=== PATIENT | female | born 1995 | race Caucasian/White ===

== ENCOUNTER 2017-11-15 20:12 | Emergency (ER) | payer OTHER, SELFPAY ==
[2017-11-15 20:13] VITALS: BP 114/64; PULSE 72; RESP 18; TEMP 36.7; O2SAT 97; BMI 21.4
--- NOTE | 2017-11-15 21:02 | RAD_ITS ---
STUDY: X-RAY - RIGHT KNEE REASON FOR EXAM: Female, 21 years old. Pain. TECHNIQUE: 4 view(s) of the knee. COMPARISON: None. FINDINGS: Normal visualized distal femur. Normal visualized proximal tibia and fibula. Normal proximal tibiofibular articulation. Normal medial femorotibial compartment. Normal lateral femorotibial compartment. Normal patellofemoral articulation. The soft tissue structures are unremarkable. RAD/Knee 4 or More Views IMPRESSION: Normal x-ray examination of the knee. Electronically Signed: Letitia Peters MD at 21:33 EDT Tel , Service support ,
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
--- NOTE | 2017-11-15 21:46 | ED.DEP ---
ED Disposition - Plan for ED Patient: Chief Complaint: Lower Extremity Injury Instructions: ED Sprain Knee, ED Meniscal Injury Knee Poss Prescriptions: Hydrocodone Bitart/Apap 5-325 [[place] 5MG-325MG] 1 tab PO Q4H PRN PRN 2 Days #10 tab PRN Reason: Pain Referrals: Shun Rosenthal MD [Primary Care Provider] - Parth Handley MD [STAFF PHYSICIAN] - 5-7 Days
--- NOTE | 2017-11-15 21:49 | DCINST.ED_ITS ---
ED Disposition - Plan for ED Patient: Chief Complaint: Lower Extremity Injury Instructions: ED Sprain Knee, ED Meniscal Injury Knee Poss Prescriptions: Hydrocodone Bitart/Apap 5-325 [[place] 5MG-325MG] 1 tab PO Q4H PRN PRN 2 Days #10 tab PRN Reason: Pain Referrals: Shun Rosenthal MD [Primary Care Provider] - Parth Handley MD [STAFF PHYSICIAN] - 5-7 Days
== END 2017-11-15 22:17 | disposition home or self-care (01) ==
LOC: ED 21:19
PROVIDERS: Emergency Provider Emergency Medicine; Family Provider Pediatrics; PCP Pediatrics
DX: S83.91XA Sprain of unspecified site of right knee, initial encounter (principal); Z79.899 Other long term (current) drug therapy; X50.1XXA Overexertion from prolonged static or awkward postures, initial encounter; Y93.89 Activity, other specified; Y92.214 College as the place of occurrence of the external cause; Y99.8 Other external cause status
CPT/HCPCS: 73564; 99283

== ENCOUNTER → 2018-06-14 | Outpatient (CLI) | payer OTHER, SELFPAY ==
[2018-06-14 10:58] VITALS: BMI 21.4
[2018-06-14 20:58] LABS: Chlamydia Trachomatis by PCR Negative (Negative); Neisserai gonorrhoeae by PCR Negative (Negative); Probe Check PASS; Sample Adequacy Control PASS; Specimen Processing Control PASS
== END | disposition home or self-care (01) ==
PROVIDERS: Family Provider Pediatrics; PCP Pediatrics; Visit Provider Obstetrics & Gynecology
DX: Z11.3 Encounter for screening for infections with a predominantly sexual mode of transmission (principal)
CPT/HCPCS: 87491; 87591

== ENCOUNTER → 2018-06-28 | Outpatient (CLI) | payer OTHER, SELFPAY ==
[2018-06-28 14:08] VITALS: BMI 21.4
--- NOTE | 2018-06-28 14:21 | RAD_ITS ---
STUDY: X-RAY - RIGHT KNEE REASON FOR EXAM: Female, 22 years old. Injury TECHNIQUE: 4 view(s) of the knee. COMPARISON: None. FINDINGS: Normal visualized distal femur. Normal visualized proximal tibia and fibula. Normal proximal tibiofibular articulation. Normal medial femorotibial compartment. Normal lateral femorotibial compartment. Normal patellofemoral articulation. The soft tissue structures are unremarkable. RAD/Knee 4 or More Views IMPRESSION: Normal x-ray examination of the knee. Electronically Signed: Skyler Blank DO at 20:31 EDT Tel [phone], Service support ,
== END | disposition home or self-care (01) ==
LOC: HPRAD 14:20
PROVIDERS: Family Provider Pediatrics; PCP Pediatrics; Referring Provider Orthopaedic Surgery; Visit Provider Orthopaedic Surgery
DX: M25.561 Pain in right knee (principal)
CPT/HCPCS: 73564

== ENCOUNTER → 2018-07-05 | Outpatient (CLI) | payer OTHER, SELFPAY ==
[2018-06-28 14:08] VITALS: BMI 21.4
--- NOTE | 2018-07-05 10:23 | MRI_ITS ---
STUDY: MRI RIGHT KNEE REASON FOR EXAM: Female, 22 years old. Right knee injury. TECHNIQUE: Standardized fat and water weighted pulse sequences were obtained in all 3 orthogonal planes. COMPARISON: June 28, 2018. FINDINGS: Patellofemoral articular cartilage preserved. Medial compartment articular cartilage preserved. Lateral compartment articular cartilage preserved. No acute fracture line. No dislocation. No cortical destruction. Lateral meniscus intact. Medial meniscus intact. Chronic anterior cruciate ligament tear with suspected scarring (sagittal images 21 through 24 series 4 and coronal images 11 through 15 series 7). Posterior cruciate ligament intact. Trace joint effusion. No popliteal cyst. No significant soft tissue swelling. Normal medial collateral ligamentous complex (MCL). Normal distal semimembranosus, gracilis and semitendinosus tendons. Normal proximal tibiofibular articulation. Normal lateral collateral (fibular) ligament. Normal popliteus tendon. Normal biceps femoris tendon. Normal medial and lateral patellar retinaculum. Normal quadriceps tendon. Normal patellar tendon. Normal Hoffa's fat pad. MRI/Lower Ext Joint Only (Routine) IMPRESSION: Chronic ACL tear with suspected scarring (correlate laxity) Trace joint effusion Menisci and collateral ligaments intact Electronically Signed: Bao Perry DO at 13:36 EDT Tel , Service support ,
== END | disposition home or self-care (01) ==
PROVIDERS: Family Provider Pediatrics; PCP Pediatrics; Referring Provider Orthopaedic Surgery; Visit Provider Orthopaedic Surgery
DX: M23.91 Unspecified internal derangement of right knee (principal)
CPT/HCPCS: 73721

== ENCOUNTER 2018-08-18 13:30 | Outpatient (RCR) | payer OTHER, SELFPAY ==
[2018-07-12 10:27] VITALS: BMI 21.4
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
--- NOTE | 2018-10-18 14:55 | HP.PTDCNRP_ITS ---
HP - Discharge Summary (1) - Patient Information JENNI CRAWLEY was seen in my office for initial evaluation on 07/19/18. The following Plan of Care was established for this patient: Initial Frequency: 3x /Week Initial Duration: 4-6 Weeks - Anticipated Interventions Patient/Client Instruction: Educate patient on: Condition, Plan of Care For the Purpose of:: To decrease pain, To increase ROM, To improve performance and independence with ADL's, To improve ability of physical actions for home/community/work/leisure, To improve gait and locomotor functions Therapeutic Exercise to Include: Strength training, Flexibilty training, Gait and locomotor training, Passive ROM, Active ROM For the Purpose of:: To decrease pain, To increase ROM, To improve muscle perf ormance and motor function, To improve ability of physical actions for home/community/work/leisure Manual Therapy Techniques to Include: Soft tissue mobilization For the Purpose of:: To increase ROM TENS: Yes Cryotherapy (ice pack, ice massage): Yes For the Purpose of:: To decrease pain, To decrease swelling/inflammation This patient was last seen in our office 08/18/18. Pertinent comments regarding their Physical therapy will appear below: Pt seen 10 visits of POC and progressed. She did not show up for her last official recheck visit. At this point, it has been over 6 weeks adn I will discontinue due to nonattendance. At this point I will be discontinuing this patient from physical therapy. I would be happy to see this patient again in the future if found appropriate by the physician. Thank you! Bao Stein, DPT, OCS, CSCS
== END 2018-08-18 19:00 | disposition home or self-care (01) ==
LOC: PT 13:30
PROVIDERS: Family Provider Pediatrics; PCP Pediatrics; Visit Provider Orthopaedic Surgery
DX: M22.40 Chondromalacia patellae, unspecified knee (principal)
CPT/HCPCS: 97110; 97140; 97162; 97530

== ENCOUNTER → 2019-04-19 | Outpatient (CLI) | payer OTHER, SELFPAY ==
[2019-04-19 10:13] VITALS: BMI 21.4
[2019-04-19 17:13] LABS: Chlamydia Trachomatis by PCR Negative (Negative); Neisserai gonorrhoeae by PCR Negative (Negative); Probe Check PASS; Sample Adequacy Control PASS; Specimen Processing Control PASS
== END | disposition home or self-care (01) ==
LOC: LABSPEC 13:55
PROVIDERS: PCP Pediatrics; Referring Provider Nurse Practitioner Women's Health; Visit Provider Nurse Practitioner Women's Health
DX: N89.8 Other specified noninflammatory disorders of vagina (principal)
CPT/HCPCS: 87070; 87077; 87205; 87491; 87591

== ENCOUNTER → 2019-04-27 13:20 | Outpatient (CLI) | payer OTHER, SELFPAY ==
[2019-04-19 10:13] VITALS: BMI 21.4
[2019-04-27 10:48] VITALS: BMI 21.4
--- NOTE | 2019-04-27 13:23 | US_ITS ---
STUDY: ULTRASOUND OF THE FEMALE PELVIS - COMPLETE REASON FOR EXAM: Female, 23 years old. Pelvic pain. IUD removal due to infection. TECHNIQUE: Transabdominal and Transvaginal TECHNICAL QUALITY: Adequate. COMPARISON: 04/05/2015. FINDINGS: The uterus is anteverted and is in a midline position. The uterus measures 8.9 x 4.7 x 3.4 cm. Normal uterine cervix. The endometrium measures 5 mm in thickness, and is hyperechoic. There is no demonstrated endometrial mass. There is no demonstrated myometrial mass. There is trace fluid noted in the cervix. The right ovary is visualized. The right ovary measures 4.2 x 3.3 x 2.9 cm. There is a 3.3 x 3.1 x 2.8 cm simple cyst in the right ovary. There is no visualized right adnexal mass or complex lesion. There is normal arterial and normal venous vascularity. The left ovary is visualized. The left ovary measures 2.6 x 1.9 x 1.3 cm. There is no left ovarian cyst or ovarian mass. There is no visualized left adnexal mass or complex lesion. There is normal arterial and normal venous vascularity. There is no fluid in the cul-de-sac. US/Transvaginal Non- IMPRESSION: Trace fluid noted in the cervix. Otherwise, normal sonographic appearance of the uterus. 3 cm simple cyst in the right ovary. Otherwise, normal ovaries with normal Doppler flow bilaterally. Electronically Signed: Kenneth Moralez, at 10:42 EST Tel , Service support ,
--- NOTE | 2019-04-27 13:23 | US_ITS ---
STUDY: ULTRASOUND OF THE FEMALE PELVIS - COMPLETE REASON FOR EXAM: Female, 23 years old. Pelvic pain. IUD removal due to infection. TECHNIQUE: Transabdominal and Transvaginal TECHNICAL QUALITY: Adequate. COMPARISON: 04/05/2015. FINDINGS: The uterus is anteverted and is in a midline position. The uterus measures 8.9 x 4.7 x 3.4 cm. Normal uterine cervix. The endometrium measures 5 mm in thickness, and is hyperechoic. There is no demonstrated endometrial mass. There is no demonstrated myometrial mass. There is trace fluid noted in the cervix. The right ovary is visualized. The right ovary measures 4.2 x 3.3 x 2.9 cm. There is a 3.3 x 3.1 x 2.8 cm simple cyst in the right ovary. There is no visualized right adnexal mass or complex lesion. There is normal arterial and normal venous vascularity. The left ovary is visualized. The left ovary measures 2.6 x 1.9 x 1.3 cm. There is no left ovarian cyst or ovarian mass. There is no visualized left adnexal mass or complex lesion. There is normal arterial and normal venous vascularity. There is no fluid in the cul-de-sac. US/Pelvic (Non ) IMPRESSION: Trace fluid noted in the cervix. Otherwise, normal sonographic appearance of the uterus. 3 cm simple cyst in the right ovary. Otherwise, normal ovaries with normal Doppler flow bilaterally. Electronically Signed: Kenneth Moralez, at 10:42 EST Tel , Service support ,
== END ==
PROVIDERS: Referring Provider Nurse Practitioner Women's Health; Visit Provider Nurse Practitioner Women's Health
DX: R10.2 Pelvic and perineal pain (principal); A42.9 Actinomycosis, unspecified
CPT/HCPCS: 76830; 76856; 87070; 87075; 87077; 87186; 87205; 93976

== ENCOUNTER 2020-10-14 15:19 | Emergency (ER) | payer OTHER, SELFPAY ==
[2019-04-27 10:48] VITALS: BMI 21.4
[2020-10-14] VITALS (8 sets, daily range): BP systolic 97–142; BP diastolic 60–97; PULSE 73–117; RESP 14–30; TEMP 36.6; O2SAT 93–99; BMI 21.4
[2020-10-14] MEDS: LORazepam 2 MG/ML Syringe IV (15:23)
[2020-10-14] MEDS: LORazepam 2 MG/ML Syringe 1 MG IV (15:35)
[2020-10-14] MEDS: Ziprasidone IM 20 MG/ML VIAL IM (15:40)
--- NOTE | 2020-10-14 16:11 | EX.ED.DYSGE1 ---
HPI History of Present Illness Chief Complaint: Seizure Informant: parent and EMS Narrative Narrative: 24-year-old female with a history of bipolar disorder and PNES. Reportedly father called EMS for seizure activity. EMS was with her for about 12 minutes total. They states they gave her 5 mg of intranasal Versed. The activity improved and she seemed to be postictal and then activity resumed. They note that it seems to be at generalized tonic-clonic seizure. Mother arrives in the room and tells me that she has been seeing [facility] for PNES. She is on Lamictal. They state they have not been able to capture any epileptic waveforms on EEG. She has had brain imaging. [facility] Medical History Anxiety Depression Pott disease Home Medications cetirizine 10 mg PO DAILY 04/05/15 [History Last Taken Unknown] lorazepam 1 mg PO QHS 04/05/15 [History Last Taken Unknown] citalopram 60 mg PO DAILY 11/15/17 [History Last Taken Unknown] dextroamphetamine-amphetamine [Mydayis] 37.5 mg PO DAILY 10/14/20 [History Last Taken Unknown] lamotrigine 200 mg PO DAILY 10/14/20 [History Last Taken Unknown] pantoprazole 20 mg PO DAILY 10/14/20 [History Last Taken Unknown] spironolactone 100 mg PO DAILY 10/14/20 [History Last Taken Unknown] trazodone 75 mg PO QHS 10/14/20 [History Last Taken Unknown] Allergy/AdvReac Type Severity Reaction Status Date / Time No Known Allergies Allergy Verified 10/14/20 15:26 Family History Unknown Diabetes Surgical History History of tonsillectomy Social History Smoking Status: Never smoker alcohol intake: current details: social substance use type: does not use caffeine: Yes what type of physical activity do you participate in: walking seatbelt use: always do you feel safe at home: Yes additional social history: Student at [employer] for [employer] ROS ROS ED Constitutional Constitutional ED: Denies chills or weight loss Eyes Eyes: Denies change in vision or diplopia ENT ENT ED: Denies ear pain, rhinorrhea or sore throat Cardiovascular Cardiovascular: Denies chest pain, orthopnea, palpitations or racing heartbeat Respiratory/Chest Respiratory/Chest: Denies cough, dyspnea or orthopnea Gastrointestinal Gastrointestinal: Denies abdominal pain, diarrhea, nausea or vomiting Genitourinary Genitourinary ED: Denies dysuria, hematuria or urinary frequency Musculoskeletal Musculoskeletal: Denies arthralgias or myalgias Integumentary Denies abscess or rash Neurologic Neurologic: Reports other Details: See history of present illness ; Denies headache(s) or weakness Psychiatric Psychiatric: Denies anxiety, depression, suicidal ideation or suicidal thoughts Endocrine Endocrinology: Denies polydipsia, polyphagia or polyuria Allergic/Immunologic Allergic/Immunologic ED: Denies mouth swelling, tongue swelling or urticaria EXAM Physical Exam Narrative Exam Narrative: Patient appears to have contractures of her arms and her legs. Her eyes are closed and she is shaking her head. At 1 point she appears to be biting her tongue but not causing injury. During the seizure she maintains corneal reflex and can withdrawal to pain. Const Vital Signs: 10/14/20 15:20 10/14/20 15:27 10/14/20 15:50 Temperature 98 F Temperature Source Temporal Pulse Rate 113 H 108 H 117 H Respiratory Rate 24 H 30 H 15 Blood Pressure 142/97 H 142/97 H 118/82 H Blood Pressure Mean 112 112 94 Pulse Ox 97 93 99 Oxygen Delivery Method Non-Rebreather Non-Rebreather Room Air Oxygen Flow Rate (L/min) 10/14/20 16:19 10/14/20 17:19 10/14/20 18:00 Temperature Temperature Source Pulse Rate 81 81 78 Respiratory Rate 16 16 14 Blood Pressure 97/64 99/61 98/63 Blood Pressure Mean 75 73 74 Pulse Ox 98 99 99 Oxygen Delivery Method Non-Rebreather Non-Rebreather Non-Rebreather Oxygen Flow Rate (L/min) 15 15 10/14/20 19:21 Temperature Temperature Source Pulse Rate 73 Respiratory Rate 16 Blood Pressure 99/67 Blood Pressure Mean 77 Pulse Ox 99 Oxygen Delivery Method Room Air Oxygen Flow Rate (L/min) Positive well nourished and well developed General Appearance ED: well developed HEENT Reports normocephalic, head/scalp atraumatic and moist mucous membranes Eyes PERRL and EOMs intact bilaterally Neck no lymphadenopathy, supple and no JVD Resp normal respiratory effort and clear to auscultation bilaterally Cardio regular rate, regular rhythm and no murmurs GI normal to inspection, nondistended, normoactive bowel sounds and non-tender Palpation: soft Back/Spine no CVA tenderness and normal ROM Extremity normal to inspection General Extremety ED: Negative for edema General Extremity: Negative for edema Neuro oriented x3 and CN's II-XII intact bilaterally Sensorium / Orientation: alert Motor Exam: strength 5/5 throughout Psych mental status grossly normal Mood & Affect: Negative for depressed or tearful Skin no rashes or lesions noted and no wounds MDM MDM MDM Narrative Medical decision making narrative: The patient received a total of 3 mg of Ativan. Patient started to scream that she needed to leave and wanted to run away. She was afraid that we are going to hurt her. When the Ativan did not stop her activity patient received Geodon and the patient started to rest comfortably. Patient was observed for several more hours. Patient does not remember the events. She has gotten up at time and spoken coherently with her mom. Mom is comfortable taking her home. She mom will be calling her doctors tomorrow. They do have an upcoming telehealth appointment. Discharge Plan Triage Chief Complaint: Seizure ED Provider: Soto Rivera Dx/Rx/DC Orders Clinical Impression: Psychogenic nonepileptic seizure Instructions: First Aid: Seizures Prescriptions: No Action cetirizine 10 MG tablet 10 mg PO DAILY RF: 0 lorazepam 0.5 MG tablet 1 mg PO QHS RF: 0 citalopram 20 MG tablet 60 mg PO DAILY RF: 0 lamotrigine 200 mg tablet extended release 24hr 200 mg PO DAILY RF: 0 trazodone 50 mg tablet 75 mg PO QHS RF: 0 spironolactone 100 mg tablet 100 mg PO DAILY RF: 0 pantoprazole 20 mg tablet,delayed release (DR/EC) 20 mg PO DAILY RF: 0 Mydayis 37.5 mg capsule, ER triphasic 24 hr 37.5 mg PO DAILY RF: 0 Primary Care Provider: Tiffany Santos Referrals: Tiffany Santos MD [Primary Care Provider] - As Needed Disposition Disposition: Home, Self Care
--- NOTE | 2020-10-14 16:30 | ED.RN ---
PT HAS EPISODES OF BECOMING RIGID WITH TREMORS, CONTINUES TO WITHDRAW FROM PAINFUL STIMULI. AFTER ONE EPISODE PT SAT UPRIGHT IN BED, STARTED YELLING HELP ME. PT DIFFICULT TO REDIRECT, ATTEMPTING TO GET OUT OF BED. MEDICATED PER MD ORDERS, PT RESTING QUIETLY IN BED AFTERWARDS. MOTHER STATES PT HAS BEEN DIAGNOSED WITH PSYCHOGENIC NON-EPILEPTIC SEIZURES.
== END 2020-10-14 19:58 | disposition home or self-care (01) ==
PROVIDERS: Emergency Provider Emergency Medicine; PCP Internal Medicine
DX: F44.5 Conversion disorder with seizures or convulsions (principal); F41.9 Anxiety disorder, unspecified; F32.9 Major depressive disorder, single episode, unspecified; Z79.899 Other long term (current) drug therapy
CPT/HCPCS: 96372; 96374; 99285; A4216; J3486

== ENCOUNTER 2021-03-21 10:30 | Emergency (ER) | payer MEDICAID, SELFPAY ==
[2021-03-21 10:32] VITALS: BP 117/73; PULSE 98; RESP 16; TEMP 36.2; O2SAT 95; BMI 23.4
--- NOTE | 2021-03-21 10:36 | EX.ED.DYSGE1 ---
HPI History of Present Illness Chief Complaint: Seizure Detail of Chief Complaint: Seizure Informant: patient Narrative Narrative: Patient presents to the emergency department with complaint of seizure. Patient was at physician's office having blood work when she started having whole body tonic-clonic like seizure activity. EMS was called. EMS gave a total of 7 mg of Versed. Initially after Versed she stopped seizing for about 5 minutes but seemed postictal. On arrival to the emergency department patient started to seize again. Patient was ordered Keppra on arrival 1 g IV. Prior similar symptoms: Yes [facility] Medical History (Updated 03/21/21 @ 14:[address] Toshia Wild DO) Anxiety Depression Pott disease Pseudoseizures Home Medications cetirizine 10 mg PO DAILY 04/05/15 [History Last Taken Unknown] lorazepam 1 mg PO QHS 04/05/15 [History Last Taken Unknown] citalopram 40 mg PO DAILY 11/15/17 [History Last Taken Unknown] dextroamphetamine-amphetamine [Mydayis] 37.5 mg PO DAILY 10/14/20 [History Last Taken Unknown] lamotrigine 200 mg PO DAILY 10/14/20 [History Last Taken Unknown] pantoprazole 20 mg PO DAILY 10/14/20 [History Last Taken Unknown] spironolactone 50 mg PO DAILY 10/14/20 [History Last Taken Unknown] trazodone 75 mg PO QHS 10/14/20 [History Last Taken Unknown] ondansetron 4 mg PO PRN PRN 03/21/21 [History Last Taken Unknown] Allergy/AdvReac Type Severity Reaction Status Date / Time No Known Allergies Allergy Verified 03/21/21 10:38 Family History Unknown Diabetes Surgical History History of tonsillectomy Social History Smoking Status: Never smoker alcohol intake: current details: social substance use type: does not use caffeine: Yes what type of physical activity do you participate in: walking seatbelt use: always do you feel safe at home: Yes additional 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 history: 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 ROS ED Review of Systems ROS Unobtainable: due to encephalopathy, due to endotracheal tube, due to mental condition, due to mental status and other Constitutional Constitutional ED: Reports systems reviewed and no addt'l complaints, except as documented; Denies body ache(s), change in weight or chills Eyes Eyes: Denies acute decrease in peripheral vision, change in vision, double vision or loss of vision ENT ENT ED: Reports none; Denies ear pain, lip swelling, loss taste/smell, neck pain, otalgia or sore throat Cardiovascular Cardiovascular: Reports none; Denies abdominal pain, chest pain with activity, leg edema, lightheadedness, palpitations, rapid heart rate or syncope Respiratory/Chest Respiratory/Chest: Reports none; Denies change in mental status, dry cough, dyspnea, hemoptysis, shortness of breath at rest or shortness of breath with exertion Gastrointestinal Gastrointestinal: Reports none; Denies abdominal pain, change in stool character, diarrhea, hematemesis, hematochezia, melena, rectal bleeding or vomiting Genitourinary Genitourinary ED: Reports none; Denies abdominal discomfort, anuria, dysuria, genital pain or polyuria Musculoskeletal Musculoskeletal: Reports none; Denies arthralgias, back pain, difficulty walking, extremity pain, muscle weakness or myalgias Integumentary Reports none; Denies abscess or rash Neurologic Neurologic: Reports none; Denies abnormal gait, confusion, focal weakness, frequent falls, headache(s), loss of vision, numbness, paresthesias, radicular pain, vertigo or weakness Psychiatric Psychiatric: Reports systems reviewed and no addt'l complaints, except as documented and none; Denies behavioral changes, confusion, difficulty concentrating, hallucinations, suicidal ideation, tactile hallucinations or visual hallucinations Endocrine Endocrinology: Denies none, cold intolerance, excessive sweating, fatigue or heat intolerance Hematologic/Lymphatic Hematologic/Lymphatic: Reports none; Denies anemia, easy bleeding or easy bruising Allergic/Immunologic Allergic/Immunologic ED: Denies as per HPI, none, lip swelling, mouth swelling, throat swelling, tongue swelling or hives EXAM Physical Exam Narrative Exam Narrative: No seizure activity seen as I enter the room. Patient not following commands at this time but maintaining her airway. When I attempt to open her eyes she is looking in different directions but there is no twitching of her eyes noted. Const Vital Signs: 01/20/22 10:32 03/21/21 11:06 03/21/21 12:28 Temperature 97.1 F L Temperature Source Temporal Pulse Rate 98 92 84 Respiratory Rate 16 16 15 Blood Pressure 117/73 100/67 97/62 Blood Pressure Mean 87 78 73 Pulse Ox 95 94 97 Oxygen Delivery Method Room Air Room Air Room Air 03/21/21 14:30 Temperature Temperature Source Pulse Rate 78 Respiratory Rate 14 Blood Pressure 94/53 L Blood Pressure Mean 66 Pulse Ox 98 Oxygen Delivery Method Room Air Positive well nourished and well developed General Appearance ED: well developed and NAD HEENT Reports TM's clear and moist mucous membranes normocephalic and atraumatic; Negative for trauma or tenderness Tympanic Membrane ED: Yes TM's clear Eyes PERRL and EOMs intact bilaterally General Eye ED: Negative for pale conjunctiva or scleral icterus Neck no lymphadenopathy, supple and no JVD General: Negative for tenderness Chest Wall inspection of chest normal and palpation of chest normal Chest: Negative for tenderness Resp normal respiratory effort and clear to auscultation bilaterally Effort and Inspection: Negative for respiratory distress or pain with movement Auscultation: Negative for rhonchi, wheezes or diminished lung sounds Cardio regular rate, regular rhythm, S1 normal heart sound, S2 normal heart sound and no murmurs Peripheral Pulses: pulses 2+ throughout GI normal to inspection, nondistended, normoactive bowel sounds, soft to palpation, non-tender, non-distended and no masses Back/Spine no CVA tenderness and no thoracic nor lumbar tenderness Extremity normal to inspection General Extremety ED: Negative for edema General Extremity: Negative for edema Neuro oriented x3, CN's II-XII intact bilaterally, no sensory deficits noted and gait normal Sensorium / Orientation: awake, alert, oriented to person, oriented to place and oriented to time Motor Exam: strength 5/5 throughout and strength abnormal Psych mental status grossly normal Skin no rashes or lesions noted and no wounds MDM MDM MDM Narrative Medical decision making narrative: Patient presented to the emergency department with an IV in place. Initially I had ordered Keppra as EMS stated that patient was seizing again however once I entered the room she had stopped seizing. Mother then soon arrived and stated that patient is been under the care of neurologist at [facility] and she has nonepileptic seizures and typically the medicine that helps her the most is Geodon. Patient did receive 10 mg of Geodon IM. Patient had unremarkable lab work. She was observed in the department for several hours and she became alert and active and was able to ambulate in the department. At this point she and her mother feel like she is ready to go home. Patient advised to follow-up with her neurologist. Lab Data Attestation: I reviewed the patient's lab results. Labs: Laboratory Results - last 24 hr 03/21/21 03/21/21 03/21/21 10:35 10:35 10:43 WBC 8.9 RBC 4.59 Hgb 13.5 Hct 40.6 MCV 88.5 MCH 29.4 MCHC 33.3 RDW Std Deviation 37.4 RDW Coeff of Ervin 11.7 Plt Count 340 MPV 8.8 Immature Gran % (Auto) 0.200 Neut % (Auto) 55.3 Lymph % (Auto) 33.1 Gates % (Auto) 6.3 Eos % (Auto) 3.9 Baso % (Auto) 1.2 H Absolute Neuts (auto) 4.9 Absolute Lymphs (auto) 2.95 Nucleated RBC % 0 Sodium 137 Potassium 3.8 Chloride 104 Carbon Dioxide 23.0 Anion Gap 10 BUN 14 Creatinine 1.08 H Estim Creat Clear Calc 81.72 Est GFR (MDRD) Af Amer 81 Est GFR (MDRD) Non-Af 67 BUN/Creatinine Ratio 13.0 Glucose 95 Calcium 9.1 Total Bilirubin 0.60 AST 18 ALT 24 Alkaline Phosphatase 71 Total Protein 8.2 Albumin 3.8 Globulin 4.4 H Albumin/Globulin Ratio 0.9 Serum , Qual Urine Opiates Screen Urine Methadone Screen Ur Barbiturates Screen Ur Phencyclidine Scrn Ur Amphetamines Screen U Methamphetamin-MDMA U Benzodiazepines Scrn Urine Cocaine Screen U Cannabinoids Screen Ur Drug Screen Comment Ethyl Alcohol 4.0 03/21/21 03/21/21 10:43 12:30 WBC RBC Hgb Hct MCV MCH MCHC RDW Std Deviation RDW Coeff of Ervin Plt Count MPV Immature Gran % (Auto) Neut % (Auto) Lymph % (Auto) Gates % (Auto) Eos % (Auto) Baso % (Auto) Absolute Neuts (auto) Absolute Lymphs (auto) Nucleated RBC % Sodium Potassium Chloride Carbon Dioxide Anion Gap BUN Creatinine Estim Creat Clear Calc Est GFR (MDRD) Af Amer Est GFR (MDRD) Non-Af BUN/Creatinine Ratio Glucose Calcium Total Bilirubin AST ALT Alkaline Phosphatase Total Protein Albumin Globulin Albumin/Globulin Ratio Serum , Qual NEGATIVE Urine Opiates Screen NEGATIVE Urine Methadone Screen NEGATIVE Ur Barbiturates Screen NEGATIVE Ur Phencyclidine Scrn NEGATIVE Ur Amphetamines Screen POSITIVE H U Methamphetamin-MDMA NEGATIVE U Benzodiazepines Scrn POSITIVE H Urine Cocaine Screen NEGATIVE U Cannabinoids Screen NEGATIVE Ur Drug Screen Comment Ethyl Alcohol Discharge Plan Triage Chief Complaint: Seizure ED Provider: Toshia Wild Dx/Rx/DC Orders Clinical Impression: Psychogenic nonepileptic seizure Instructions: ED Conversion Disdr Conversion Reac Prescriptions: No Action cetirizine 10 MG tablet 10 mg PO DAILY RF: 0 lorazepam 0.5 MG tablet 1 mg PO QHS RF: 0 citalopram 20 MG tablet 40 mg PO DAILY RF: 0 lamotrigine 200 mg tablet extended release 24hr 200 mg PO DAILY RF: 0 trazodone 50 mg tablet 75 mg PO QHS RF: 0 spironolactone 100 mg tablet 50 mg PO DAILY RF: 0 pantoprazole 20 mg tablet,delayed release (DR/EC) 20 mg PO DAILY RF: 0 Mydayis 37.5 mg capsule, ER triphasic 24 hr 37.5 mg PO DAILY RF: 0 ondansetron 4 mg tablet,disintegrating 4 mg PO PRN PRN (Reason: Nausea) RF: 0 Primary Care Provider: Tiffany Santos Referrals: Tiffany Santos MD [Primary Care Provider] - Activity Restrictions/Additional Instructions: Follow-up with your neurologist in 3 to 5 days. Disposition Disposition: Home, Self Care
[2021-03-21 10:44] LABS: Absolute Lymphocyte Count 2.95 X10^3/uL (0.83-4.51); Absolute Neutrophil Count 4.9 X10^3/uL (2.0-7.7); Basophil# 0.11 X10^3/uL; Basophil% 1.2 % (0-1); Eosinophil# 0.35 X10^3/uL; Eosinophils% 3.9 % (0-5); Hematocrit 40.6 % (37-47); Hemoglobin 13.5 g/dL (12.0-15.0); Lymphocyte # 2.95 X10^3/ul (0.83-4.51); Lymphocyte % 33.1 % (19-41); Mean Corp Hgb Conc 33.3 g/dL (32-36); Mean Corpuscular Hgb 29.4 pg (27.0-32.0); Mean Corpuscular Volume 88.5 fL (81-99); Mean Platelet Vol. 8.8 fl (6.2-12.0); Monocyte# 0.56 X10^3/uL; Monocyte% 6.3 % (0-10); NRBC Flagged by Analyzer 0 % (0-5); Neutrophil # 4.91 X10^3/uL (2.7-7.7); Neutrophil % 55.3 % (47-70); Platelet Count 340 K/mm3 (150-450); RBC Distribution Width CV 11.7 % (11.6-14.6); RBC Distribution Width SD 37.4 fl (35.1-43.9); Red Blood Count 4.59 M/mm3 (4.2-5.4); White Blood Count 8.9 K/mm3 (4.4-11.0)
[2021-03-21] MEDS: Ziprasidone IM 20 MG/ML VIAL 10 MG IM (10:50)
[2021-03-21] MEDS: 0.9% Normal Saline 1,000 ML 150 ML IV (10:50)
[2021-03-21 10:59] LABS: ALB/GLOB Ratio 0.9 RATIO (0.9-2.4); AST(SGOT) 18 U/L (15-37); Alanine Aminotransfer ALT/SGPT 24 U/L (13-56); Albumin, Serum 3.8 g/dL (3.2-5.0); Alkaline Phosphatase 71 U/L (45-117); Anion Gap 10 (5-15); BUN 14 mg/dL (7-18); Calcium,Total 9.1 mg/dL (8.5-10.1); Chloride 104 mmol/L (98-107); Creatinine, Serum 1.08 mg/dL (0.55-1.02); EST Glomerular Filtration Rate 67 mL/min (>60); Est Glom Filt Rate - Afr Amer 81 mL/min (>60); Estimated Creatinine Clearance 81.72 ml/min; Globulin 4.4 g/dL (2.2-4.2); Glucose 95 mg/dL (74-106); Potassium 3.8 mmol/L (3.5-5.1); Protein, Total 8.2 g/dL (6.4-8.2); Sodium Level 137 mmol/L (136-145)
[2021-03-21 11:06] VITALS: BP 100/67; PULSE 92; RESP 16; O2SAT 94
[2021-03-21 11:13] LABS: Internal QC Validated? YES +Cl - CLEAR BKGD; Pregnancy, Serum, hCG Quali. NEGATIVE Negative
[2021-03-21 12:28] VITALS: BP 97/62; PULSE 84; RESP 15; O2SAT 97
[2021-03-21 13:06] LABS: Amphetamine Urine VISTA POSITIVE (<1000 ng/mL); Barbiturate Urine VISTA NEGATIVE (< 200 ng/mL); Benzodiazepine Urine VISTA POSITIVE (< 200 ng/mL); Cocaine Urine VISTA NEGATIVE (< 300 ng/mL); Ecstacy Urine VISTA NEGATIVE (< 500 ng/mL); Methadone Urine VISTA NEGATIVE (< 300 ng/mL); PCP Urine VISTA NEGATIVE (< 25 ng/mL); THC Urine VISTA NEGATIVE (< 50 ng/mL); Vista UDS pH Range 6
[2021-03-21 14:30] VITALS: BP 94/53; PULSE 78; RESP 14; O2SAT 98
[2021-03-27 10:34] LABS: KEPPRA (LEVETIRACETAM) <1.0 ug/mL (10.0-40.0)
== END 2021-03-21 14:53 | disposition home or self-care (01) ==
PROVIDERS: Emergency Provider Emergency Medicine; PCP Internal Medicine; Visit Provider Emergency Medicine
DX: G40.409 Other generalized epilepsy and epileptic syndromes, not intractable, without status epilepticus (principal); F41.9 Anxiety disorder, unspecified; F32.A Depression, unspecified; Z79.899 Other long term (current) drug therapy
CPT/HCPCS: 51701; 80053; 80177; 80307; 82077; 84703; 85025; 96360; 96361; 96372; 99285; J7030; P9612; A4216; J3486

== ENCOUNTER 2021-09-07 14:52 | Emergency (ER) | payer MEDICAID, SELFPAY ==
[2021-09-07 14:54] VITALS: BP 106/78; PULSE 79; RESP 16; TEMP 36.1; O2SAT 97; BMI 23.7
--- NOTE | 2021-09-07 15:13 | EX.ED.DYSGE1 ---
HPI <STEWART Walters - Last Filed: 09/07/21 16:02> History of Present Illness Chief Complaint: Seizure Narrative Narrative: 24-year-old female with past medical history of anxiety, depression, PNES presents after mother called EMS for seizure activity. This morning she was not feeling well and then about an hour before arrival she had 3 seizures in the living room. Mom states she did not hit anything and was on the living room floor. Her hands and feet become stiff and shake and her eyes rolled back in her head. No bladder or bowel incontinence. EMS administered 5 of Versed and she has had no further seizure activity. She arrives sleepy but is able to speak. Mom states she had extensive work-up at [facility] and was determined to have psychogenic nonepileptic seizures. They had admitted her for week-long video EEG and did brain imaging which was negative. PENDING SALE TO [facility] <STEWART Walters - Last Filed: 09/07/21 16:02> PENDING SALE TO [facility] Medical History (Updated 09/07/21 @ 15:18 by STEWART Walters) Anxiety Depression Pott disease Pseudoseizures Home Medications cetirizine 10 mg tablet 10 mg PO DAILY 04/05/15 [History Last Taken Unknown] lorazepam 0.5 mg tablet 1 mg PO QHS 04/05/15 [History Last Taken Unknown] dextroamphetamine-amphetamine ER 37.5 mg capsule, 3 bead, ext rel 24hr (Mydayis) 37.5 mg PO DAILY 10/14/20 [History Last Taken Unknown] lamotrigine 200 mg tablet,extended release 24 hr 200 mg PO DAILY 10/14/20 [History Last Taken Unknown] pantoprazole 20 mg tablet,delayed release 20 mg PO DAILY 10/14/20 [History Last Taken Unknown] spironolactone 100 mg tablet 50 mg PO DAILY 10/14/20 [History Last Taken Unknown] trazodone 50 mg tablet 100 mg PO QHS 10/14/20 [History Last Taken Unknown] ondansetron 4 mg disintegrating tablet 4 mg PO PRN PRN Nausea 03/21/21 [History Last Taken Unknown] Allergy/AdvReac Type Severity Reaction Status Date / Time No Known Allergies Allergy Verified 03/21/21 10:38 Family History Unknown Diabetes Surgical History History of tonsillectomy Social History Smoking Status: Never smoker alcohol intake: current details: social substance use type: does not use caffeine: Yes what type of physical activity do you participate in: walking seatbelt use: always do you feel safe at home: Yes 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 Eyes: Negative for visual change. ENT: Negative for sore throat, ear pain, rhinorrhea. CVS: Negative for palpitations, chest pain, syncope. Respiratory: Negative for shortness of breath, cough, orthopnea. GI: Negative for abdominal pain, nausea, vomiting, diarrhea, constipation, melena, hematochezia. : Negative for dysuria, hematuria or frequency. Neuro: Negative for headache, motor/sensory dysfunction. Skin: Negative for rash, abscess, or wound. Musc: Negative for joint pain, swelling, trauma. Heme: Negative for easy bruising, bleeding, lymphadenopathy. EXAM <STEWART Walters - Last Filed: 09/07/21 16:02> Physical Exam Narrative Exam Narrative: CONST: Patient resting in bed with eyes closed, no distress. EYES: Normal inspection. PERRLA, EOMI. ENT: Normal inspection, moist mucous membranes. NECK: Normal inspection. RESP: No respiratory distress, CTAB. CVS: Regular rate and rhythm, no murmur, no gallop. ABD: Soft and nontender, no guarding or rebound, nondistended. SKIN: Color normal, no rash, warm, dry, intact. EXTREMITIES: Normal appearance, no pedal edema. NEURO: Oriented, patient is sleepy from Versed but will say yes or no to historical questions appropriately, squeezes hands bilaterally, wiggles toes on command. No clonus and downgoing Babinski. PSYCH: Normal affect. Const Vital Signs: 09/07/21 14:54 Temperature 96.9 F L Temperature Source Temporal Pulse Rate 79 Respiratory Rate 16 Blood Pressure 106/78 Blood Pressure Mean 87 Pulse Ox 97 Oxygen Delivery Method Room Air <Dr. Eliud Mora MD - Last Filed: 09/07/21 15:42> Physical Exam Const Vital Signs: 09/07/21 14:54 Temperature 96.9 F L Temperature Source Temporal Pulse Rate 79 Respiratory Rate 16 Blood Pressure 106/78 Blood Pressure Mean 87 Pulse Ox 97 Oxygen Delivery Method Room Air MDM <STEWART Walters - Last Filed: 09/07/21 16:02> [facility] Narrative Medical decision making narrative: Patient had a seizure this morning. She has a known history of psychogenic nonepileptic seizures diagnosed by EEG/brain imaging. She is not on any antiepileptic medications. She was given Versed by EMS and is now sleepy but back to baseline. She is answering my questions appropriately. She is corneal reflex present. She will squeeze my hands and wiggle her toes. She has a nonfocal neurological exam. With no diagnosis of PNES there is no indication for further intervention or emergent work-up. After few minutes in the ED patient is sitting in bed with eyes open awake and alert chatting with mom. She is able to ambulate. She will be discharged home. Diagnosis 1. Psychogenic nonepileptic seizures I have personally performed a face to face assessment of the patient and have reviewed the COBY Note. I performed a substantive portion of the visit including all aspects of the following. My long findings include: History is [25-year-old female with a history of pseudoseizures. Today was having seizures. Squad was called. They gave her 5 mg IM of Versed. He has had extensive work-up in the past. Including prolonged EEGs and brain imaging all of which has been negative. She has been in her normal state of health. The episode stopped after the of the Versed. Currently she is asleep. Mom is present in the room and is providing the history.] Exam is [25-year-old female no acute distress. Vital signs stable afebrile. Pulse ox 97% on room air no signs hypoxia. Patient is resting comfortably. Eyes are closed. When I open her eyes manually they do respond to light. No signs of trauma to her head or face. Neck nontender. Lungs are clear. Heart regular rhythm rate about 80 no murmur. Abdomen soft nontender. Extremities currently are flaccid. Neurologically she does not respond to commands currently she has stable vital signs and pulse ox.] Medical Decision Making [reviewed the patient's prior work-ups. Again she has had negative EEGs and negative imaging. We will watch her in the emergency department and as long as she is doing well she will eventually be discharged home.] Other additions or changes: [None] <Dr. Eliud Mora MD - Last Filed: 09/07/21 15:42> [facility] Narrative Medical decision making narrative: Patient had a seizure this morning. She has a known history of psychogenic nonepileptic seizures diagnosed by EEG/brain imaging. She is not on any antiepileptic medications. She was given Versed by EMS and is now sleepy but back to baseline. She is answering my questions appropriately. She is corneal reflex present. She will squeeze my hands and wiggle her toes. She has a nonfocal neurological exam. With no diagnosis of PNES there is no indication for further intervention or emergent work-up. Diagnosis 1. Psychogenic nonepileptic seizures I have personally performed a face to face assessment of the patient and have reviewed the COBY Note. I performed a substantive portion of the visit including all aspects of the following. My long findings include: History is [25-year-old female with a history of pseudoseizures. Today was having seizures. Squad was called. They gave her 5 mg IM of Versed. He has had extensive work-up in the past. Including prolonged EEGs and brain imaging all of which has been negative. She has been in her normal state of health. The episode stopped after the of the Versed. Currently she is asleep. Mom is present in the room and is providing the history.] Exam is [25-year-old female no acute distress. Vital signs stable afebrile. Pulse ox 97% on room air no signs hypoxia. Patient is resting comfortably. Eyes are closed. When I open her eyes manually they do respond to light. No signs of trauma to her head or face. Neck nontender. Lungs are clear. Heart regular rhythm rate about 80 no murmur. Abdomen soft nontender. Extremities currently are flaccid. Neurologically she does not respond to commands currently she has stable vital signs and pulse ox.] Medical Decision Making [reviewed the patient's prior work-ups. Again she has had negative EEGs and negative imaging. We will watch her in the emergency department and as long as she is doing well she will eventually be discharged home.] Other additions or changes: [None] Discharge Plan Triage Chief Complaint: Seizure ED Midlevel Provider: Shonda Hilario ED Provider: Eliud Mora Dx/Rx/DC Orders Clinical Impression: Convulsion, non-epileptic Instructions: ED Seizure, Recurrent (Adult) Prescriptions: No Action cetirizine 10 MG tablet 10 mg PO DAILY lorazepam 0.5 MG tablet 1 mg PO QHS lamotrigine 200 mg tablet extended release 24hr 200 mg PO DAILY Label Comments: Take 1 tablet by mouth daily at bedtime. trazodone 50 mg tablet 100 mg PO QHS Label Comments: by mouth as directed Take 1 1/2 to 2 tabs at bedtime spironolactone 100 mg tablet 50 mg PO DAILY pantoprazole 20 mg tablet,delayed release (DR/EC) 20 mg PO DAILY Label Comments: Take 1 tablet by mouth daily before breakfast. Take on empty stomach, 1/2 hr before meal. Mydayis 37.5 mg capsule, ER triphasic 24 hr 37.5 mg PO DAILY Label Comments: Take 1 capsule by mouth every morning ondansetron 4 mg tablet,disintegrating 4 mg PO PRN PRN (Reason: Nausea) Label Comments: Take 1 tablet by mouth twice daily as needed. Primary Care Provider: Tiffany Santos Referrals: Tiffany Santos MD [Primary Care Provider] - Activity Restrictions/Additional Instructions: Patient stable in ER. She is responding to questions and awake and safe to go home. Please follow up with her doctors. Disposition Disposition: Home, Self Care
[2021-09-07 16:03] VITALS: BP 102/79; PULSE 90; RESP 16; O2SAT 98
== END 2021-09-07 16:04 | disposition home or self-care (01) ==
PROVIDERS: Emergency Provider Emergency Medicine; PCP Internal Medicine; Visit Provider Emergency Medicine
DX: F44.5 Conversion disorder with seizures or convulsions (principal); F41.9 Anxiety disorder, unspecified; F32.9 Major depressive disorder, single episode, unspecified; A18.01 Tuberculosis of spine; Z79.899 Other long term (current) drug therapy
CPT/HCPCS: 99284; A4216

== ENCOUNTER 2021-10-23 10:46 | Emergency (ER) | payer MEDICAID, SELFPAY ==
[2021-10-23 10:47] VITALS: BP 125/84; PULSE 106; RESP 18; TEMP 36.4; O2SAT 98; BMI 24.3
[2021-10-23 11:10] LABS: Bedside Glucose 109 mg/dL (74-106)
[2021-10-23] MEDS: Ziprasidone IM 20 MG/ML VIAL IM (11:15)
--- NOTE | 2021-10-23 11:15 | EDS_ITS ---
HPI History of Present Illness Chief Complaint: Seizure Informant: parent Narrative Narrative: Is a 25-year-old female with history of nonepileptic seizures, anxiety, panic attacks, POTS and bipolar 2 disorder presenting after seizure like acitivty. Mother is at the bedside to provide history. Mother notes that patient was recently taken off her Cymbalta and stopped it last week however her lamotrigine was increased at the same time. Patient's been feeling unwell and more fatigued over the past few weeks especially over the past week. Mother notes patient had seizure activity in bed today. She states that usually last for a while. Patient was laying in bed, seem to bite her tongue and had all over body shaking. She did have an episode of urinary incontinence and vomiting. EMS was called patient received 5 mg of intranasal Versed. She then had episode seizure activity was brought to the emergency room. Patient states that seizure-like activity is typical of her nonepileptic seizures but normally she does not have any urinary incontinence during them. 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 Mother notes has not seen her neurologist in about a year. Prior similar symptoms: Yes [facility] Medical History Anxiety Depression Pott disease Pseudoseizures Home Medications cetirizine 10 mg tablet 10 mg PO DAILY 04/05/15 [History Last Taken Unknown] lorazepam 0.5 mg tablet 1.5 mg PO QHS 04/05/15 [History Last Taken Unknown] dextroamphetamine-amphetamine ER 37.5 mg capsule, 3 bead, ext rel 24hr (Mydayis) 37.5 mg PO DAILY 10/14/20 [History Last Taken Unknown] lamotrigine 200 mg tablet,extended release 24 hr 300 mg PO QHS 10/14/20 [History Last Taken Unknown] pantoprazole 20 mg tablet,delayed release 20 mg PO DAILY 10/14/20 [History Last Taken Unknown] trazodone 50 mg tablet 100 mg PO QHS 10/14/20 [History Last Taken Unknown] drospirenone 3 mg-ethinyl estradiol 0.02 mg tablet (Lo-Zumandimine (28)) 1 tab PO DAILY 10/23/21 [History Last Taken Unknown] ergocalciferol (vitamin D2) 25,000 unit capsule 50,000 unit PO QWEEK 10/23/21 [History Last Taken Unknown] fludrocortisone 0.1 mg tablet 0.1 mg PO DAILY 10/23/21 [History Last Taken Unknown] Allergy/AdvReac Type Severity Reaction Status Date / Time No Known Allergies Allergy Verified 10/23/21 10:52 Family History Unknown Diabetes Surgical History History of tonsillectomy Social History Smoking Status: Never smoker alcohol intake: current details: social substance use type: does not use caffeine: Yes what type of physical activity do you participate in: walking seatbelt use: always do you feel safe at home: Yes additional social history: Student at [employer] Mechanical [employer] Techn[employer] ROS ROS ED Review of Systems ROS Unobtainable: other Details: post ictal EXAM Physical Exam Const Vital Signs: 10/23/21 10:47 10/23/21 12:15 10/23/21 13:02 Temperature 97.5 F L Temperature Source Temporal Pulse Rate 106 H 96 76 Respiratory Rate 18 16 15 Blood Pressure 125/84 H 109/64 107/58 L Blood Pressure Mean 97 79 74 Pulse Ox 98 99 100 Oxygen Delivery Method Room Air Room Air Room Air 10/23/21 13:40 Temperature Temperature Source Pulse Rate Respiratory Rate Blood Pressure 110/61 Blood Pressure Mean Pulse Ox Oxygen Delivery Method Positive well nourished and well developed Constitutional Narrative: Lying in bed, no acute distress General Appearance ED: well developed HEENT Reports TM's clear and moist mucous membranes HEENT Narrative: No obvious signs of tongue laceration however patient is minimally cooperative with completely protruding her tongue. Negative for trauma Tympanic Membrane ED: Yes TM's clear Eyes PERRL and EOMs intact bilaterally Neck supple Chest Wall inspection of chest normal and palpation of chest normal Resp normal respiratory effort and clear to auscultation bilaterally Cardio regular rate and regular rhythm GI normal to inspection, nondistended, normoactive bowel sounds and non-tender Extremity normal to inspection General Extremety ED: Negative for edema or tenderness General Extremity: Negative for edema Neuro Neuro Narrative: Patient follows commands for physical exam so she is holding up her arms but she does not voluntarily open her eyes when I asked her to. She does open her eyes when I am trying to examine her. She protects her face from a dropping hands. Holds her bilateral arms up without drift. Does not cooperate with lower extremity exam. Psych Psych Narrative: Patient initially sleeping in normal seems to be ignoring me in the room. I was called back into the room shortly afterwards as patient is now saying help and I need to get out of here and trying to go out of bed. Patient is tearful. She started to hyperventilate. Skin no rashes or lesions noted and no wounds MDM MDM MDM Narrative Medical decision making narrative: Patient is evaluated for having seizure-like activity. She has a panic attack while in the emergency room and has to be restrained with Geodon prevent her from hurting herself as she is thrashing around in the room and cannot be verbally de-escalated. Work-up does not show any electrolyte abnormalities or signs of infection for another cause of her seizure-like activity. 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 She has no further seizure activity in the emergency room. She has a normal neurologic exam. On repeat evaluation she is returned to her baseline and is feeling better. She has no tongue laceration. She ambulates in the emergency room. She is given a liter of IV fluids. Will be discharged home to follow-up with her neurologist as well as her psychiatrist that she did have recent medication changes. Patient and mother verbalized agreement and understanding with this plan. Lab Data Labs: Laboratory Results - last 24 hr 10/23/21 10/23/21 10/23/21 10:49 10:50 10:50 WBC 10.4 RBC 4.74 Hgb 14.1 Hct 42.1 MCV 88.8 MCH 29.7 MCHC 33.5 RDW Std Deviation 38.5 RDW Coeff of Ervin 11.9 Plt Count 347 MPV 9.5 Immature Gran % (Auto) 0.300 Neut % (Auto) 64.4 Lymph % (Auto) 25.0 Gaines % (Auto) 4.0 Eos % (Auto) 5.5 H Baso % (Auto) 0.8 Absolute Neuts (auto) 6.7 Absolute Lymphs (auto) 2.60 Nucleated RBC % 0 Sodium 139 Potassium 3.8 Chloride 107 Carbon Dioxide 24.0 Anion Gap 8 BUN 12 Creatinine 0.95 Estim Creat Clear Calc 92.91 Est GFR (MDRD) Af Amer 93 Est GFR (MDRD) Non-Af 77 BUN/Creatinine Ratio 12.6 Glucose 111 H Calcium 9.8 Serum , Qual POC Glucose 109 H 10/23/21 10:50 WBC RBC Hgb Hct MCV MCH MCHC RDW Std Deviation RDW Coeff of Ervin Plt Count MPV Immature Gran % (Auto) Neut % (Auto) Lymph % (Auto) Gaines % (Auto) Eos % (Auto) Baso % (Auto) Absolute Neuts (auto) Absolute Lymphs (auto) Nucleated RBC % Sodium Potassium Chloride Carbon Dioxide Anion Gap BUN Creatinine Estim Creat Clear Calc Est GFR (MDRD) Af Amer Est GFR (MDRD) Non-Af BUN/Creatinine Ratio Glucose Calcium Serum , Qual NEGATIVE POC Glucose Discharge Plan Triage Chief Complaint: Seizure ED Provider: Margot Carrasquillo Dx/Rx/DC Orders Clinical Impression: Psychogenic nonepileptic seizure, Panic attack Instructions: ED Anxiety Reaction, ED Conversion Reaction Prescriptions: No Action cetirizine 10 MG tablet 10 mg PO DAILY lorazepam 0.5 MG tablet 1.5 mg PO QHS lamotrigine 200 mg tablet extended release 24hr 300 mg PO QHS Label Comments: Take 1 tablet by mouth daily at bedtime. trazodone 50 mg tablet 100 mg PO QHS Label Comments: by mouth as directed Take 1 1/2 to 2 tabs at bedtime pantoprazole 20 mg tablet,delayed release (DR/EC) 20 mg PO DAILY Label Comments: Take 1 tablet by mouth daily before breakfast. Take on empty stomach, 1/2 hr before meal. Mydayis 37.5 mg capsule, ER triphasic 24 hr 37.5 mg PO DAILY Label Comments: Take 1 capsule by mouth every morning fludrocortisone 0.1 mg Tablet 0.1 mg PO DAILY Vitamin D2 25,000 unit Capsule 50,000 unit PO QWEEK drospirenone-ethinyl estradiol [Lo-Zumandimine (28)] 3-0.02 mg Tablet 1 tab PO DAILY Primary Care Provider: Tiffany Santos Referrals: Tiffany Santos MD [Primary Care Provider] - Activity Restrictions/Additional Instructions: Please follow up with your neurologist as well as her psychiatrist for further medication recommendations. Disposition Disposition: Home, Self Care Discharge Date/Time: 10/23/21 13:44
[2021-10-23 11:22] LABS: Absolute Neutrophil Count 6.7 X10^3/uL (2.0-7.7); Basophil# 0.08 X10^3/uL; Basophil% 0.8 % (0-1); Eosinophil# 0.57 X10^3/uL; Eosinophils% 5.5 % (0-5); Hematocrit 42.1 % (37-47); Hemoglobin 14.1 g/dL (12.0-15.0); Mean Corp Hgb Conc 33.5 g/dL (32-36); Mean Corpuscular Hgb 29.7 pg (27.0-32.0); Mean Corpuscular Volume 88.8 fL (81-99); Mean Platelet Vol. 9.5 fl (6.2-12.0); Monocyte# 0.42 X10^3/uL; NRBC Flagged by Analyzer 0 % (0-5); Neutrophil # 6.72 X10^3/uL (2.7-7.7); Neutrophil % 64.4 % (47-70); Platelet Count 347 K/mm3 (150-450); RBC Distribution Width CV 11.9 % (11.6-14.6); RBC Distribution Width SD 38.5 fl (35.1-43.9); Red Blood Count 4.74 M/mm3 (4.2-5.4); White Blood Count 10.4 K/mm3 (4.4-11.0)
[2021-10-23 11:37] LABS: Anion Gap 8 (5-15); BUN 12 mg/dL (7-18); BUN/Creat Ratio 12.6 RATIO (10-20); Calcium,Total 9.8 mg/dL (8.5-10.1); Chloride 107 mmol/L (98-107); Creatinine, Serum 0.95 mg/dL (0.55-1.02); EST Glomerular Filtration Rate 77 mL/min (>60); Est Glom Filt Rate - Afr Amer 93 mL/min (>60); Estimated Creatinine Clearance 92.91 ml/min; Glucose 111 mg/dL (74-106); Potassium 3.8 mmol/L (3.5-5.1); Sodium Level 139 mmol/L (136-145)
[2021-10-23 11:50] LABS: Internal QC Validated? YES +Cl - CLEAR BKGD; Pregnancy, Serum, hCG Quali. NEGATIVE Negative
[2021-10-23 12:15] VITALS: BP 109/64; PULSE 96; RESP 16; O2SAT 99
[2021-10-23 13:02] VITALS: BP 107/58; PULSE 76; RESP 15; O2SAT 100
[2021-10-23 13:40] VITALS: BP 110/61
== END 2021-10-23 13:44 | disposition home or self-care (01) ==
PROVIDERS: Emergency Provider Emergency Medicine; PCP Internal Medicine; Visit Provider Emergency Medicine
DX: F41.0 Panic disorder [episodic paroxysmal anxiety] (principal); R56.9 Unspecified convulsions; R06.4 Hyperventilation; R11.10 Vomiting, unspecified; R32 Unspecified urinary incontinence; I49.8 Other specified cardiac arrhythmias; F32.A Depression, unspecified; Z79.899 Other long term (current) drug therapy
CPT/HCPCS: 80048; 82962; 84703; 85025; 96372; 99285; J7030; A4216; J3486